=== PATIENT | female | born 1945 | race Caucasian/White ===

== ENCOUNTER 2019-02-07 08:31 | Inpatient (IN) | payer MEDICARE, MEDICAID ==
[~2019-02-07] VITALS: Ht 160 cm; Wt 65.8 kg
--- NOTE | 2019-02-07 09:20 | NUR ---
PATIENT AWAKE ALERT NON DISTRESS DENIES SI NOTED LESION /ABRSSION TO RT BUTTOCK AND COCCYC MD AWARE CLEANSE WITH SALINE AND COVER
[2019-02-07 09:21] LABS: BASOPHILS # (AUTO) 0.1 /CMM (0.0-0.2); BASOPHILS % (AUTO) 1.4 % (0.0-2.0); EOSINOPHILS % (AUTO) 3.4 % (0.0-6.0); HEMATOCRIT 39 % (33-45); HEMOGLOBIN 13.2 g/dL (11.5-14.8); LYMPHOCYTES # (AUTO) 1.7 /CMM (0.8-4.8); MEAN CORPUSCULAR HGB CONC 34 g/dl (31.0-36.0); MEAN CORPUSCULAR VOLUME 93 fL (82-100); MONOCYTES # (AUTO) 0.4 /CMM (0.1-1.30); MONOCYTES % (AUTO) 7.3 % (2.0-12.0); NEUTROPHILS # (AUTO) 3.2 /CMM (1.8-8.9); NEUTROPHILS % (AUTO) 57.9 % (43.0-81.0); PLATELET COUNT (AUTO) 225 /CMM (150-450); RED BLOOD CELL COUNT(AUTO) 4.23 MIL/uL (4.0-5.2); WHITE BLOOD COUNT (AUTO) 5.6 K/uL (4.3-11.0)
[2019-02-07] MEDS ORDERED: MULT1TAB64 PO (09:31)
[2019-02-07] MEDS ORDERED: ATOR10TA PO (09:31)
[2019-02-07] MEDS ORDERED: LORA1TAB PO (09:31)
[2019-02-07] MEDS ORDERED: DIPH25CA46 PO (09:31)
[2019-02-07] MEDS ORDERED: BENA10TA11 PO (09:31)
[2019-02-07] MEDS ORDERED: DOCU-270 PO (09:31)
[2019-02-07] MEDS ORDERED: MAGN400O6 PO (09:31)
[2019-02-07] MEDS ORDERED: ACET-868 PO (09:31)
[2019-02-07] MEDS ORDERED: BISA10SU11 RC (09:31)
[2019-02-07] MEDS ORDERED: CLON0.1T PO (09:31)
[2019-02-07] MEDS ORDERED: NA P133E RC (09:31)
[2019-02-07] MEDS ORDERED: ASCO500T9 PO (09:31)
[2019-02-07 09:44] LABS: CALCIUM, SERUM 9.4 mg/dL (8.5-10.1); CARBON DIOXIDE 26 mmol/L (21-32); CHLORIDE 105 mmol/L (98-107); GLUCOSE 119 mg/dL (74-106); POTASSIUM 4.3 mmol/L (3.5-5.1); SODIUM SERUM 138 mmol/L (136-145); UREA NITROGEN, BLOOD 11 mg/dL (7-18)
[2019-02-07 09:50] LABS: ALANINE AMINOTRANSFERASE 29 U/L (12-78); ALBUMIN 3.7 g/dL (3.4-5.0); ALCOHOL, BLOOD < 3 mg/dL (0-0); ALKALINE PHOSPHATASE 86 U/L (46-116); ASPARTATE AMINOTRANSFERASE 25 U/L (15-37); BILIRUBIN,DIRECT 0.2 mg/dL (0.0-0.2); BILIRUBIN,TOTAL 0.5 mg/dL (0.2-1.0); TOTAL PROTEIN, SERUM 7.6 g/dL (6.4-8.2)
[2019-02-07 09:51] LABS: ACETAMINOPHEN < 10 ug/ml (10-30)
--- NOTE | 2019-02-07 09:57 | NUR ---
REFUSED LAGOS CATH
--- NOTE | 2019-02-07 10:44 | NUR ---
PATIENT ABLE TO AMBULATED TO BATHROOM WITHOUT DIFFICULTIES UNABLE TO PROVIDE URINE AHE FINALLY AGREES FOR IN AND OUT LAGOS CATH ,PREP AND OBSERVED STERILE TECHNIQUE URINE OBTAINED AND SEND TO LAB
[2019-02-07 10:51] LABS: APPEARANCE,URINE Slightly Cloudy (CLEAR); BILIRUBIN,URINE Negative (NEGATIVE); BLOOD, URINE Moderate Ery/uL (NEGATIVE); COLOR,URINE Yellow (YELLOW); KETONES,URINE Negative (NEGATIVE); LEUKOCYTE ESTERASE ,URINE Negative (NEGATIVE); NITRITE, URINE Negative (NEGATIVE); PROTEIN,URINE Negative (NEGATIVE); UGLUCOSE Negative (NEGATIVE); UROBILINOGEN,URINE 0.2 EU/dL (0.2)
[2019-02-07 11:00] LABS: BACTERIA,URINE 2+ /HPF (None Seen); SQUAMOUS EPITHELIAL CELL,UR Rare /HPF (None Seen); WBC,URINE NONE SEEN /HPF (0-3)
--- NOTE | 2019-02-07 11:36 | NUR ---
CALLED ART FLOORMAN.
--- NOTE | 2019-02-07 13:38 | NUR ---
PAIENT AWAKE ALERT DENIES SI STATED ANXIETY NOTED NO AGITAION NO HALLUCINATION ,CONTINUE TO MONITOR
--- NOTE | 2019-02-07 14:00 | NUR ---
NURSING ADMISSION NOTE: PT WAS ADMITTED TODAY AT 1400 TO GPS FROM [facility]. PT WAS BROUGHT TO THE UNIT VIA GURNEY ACCOMPANIED BY ONE STAFF FROM ER. PT WAS ORIGINALLY VOLUNTARY BUT THEN ONCE WAS BROUGHT TO THE UNIT WANTED TO LEAVE. PT WAS THEN RE-EVALUATED AND PLACED ON 5150 DTS. PER HOLD, "PT BIB AMBULANCE FROM [facility] FOR BEING DEPRESSED AND ANXIOUS AND VERY TEARFUL. [facility] MER[facility] STATED PT HAS EPISODES OF SEVERE ANXIETY AND MAY OVER UTILIZE HER LORAZEPAM. PATIENT IN TH ED WAS VERY COOPERATIVE AND ENGAGING AND ADMITTED ON A VOLUNTARY BASIS. ONCE ON THE GPS UNIT SHE BECAME VERY AGITATED STATING SHE WAS SUICIDAL BUT REFUSED TO STATE A PLAN. PT WAS YELLING AND POUNDING ON THE CHAIR THEN VERY TEARFUL. PT IS A&O IN ALL SPHERES NOW YELLING AND POUNDING ON THE CHAIR YELLING SHE IS SUICIDAL AND YELLING FOR MEDICATIONS. PATIENT YELLING SHE IS SUICIDAL BUT REFUSES TO STATE THE PLAN. POOR IMPULSE CONTROL." PT IS A&OX4, ANXIOUS, RESTLESS, CRYING, YELLING, STATING "I WANT TO LEAVE, I DON'T WANT TO STAY HERE, IM VERY DEPRESSED". PT VERBALIZED SI WITHOUT PLAN STATING "IM 73 YEARS OLD WHAT ELSE DO I HAVE TO LIVE FOR". PT DENIES HI/AVH AT THIS TIME. PT C/O PAIN TO LOWER BACK BUT REFUSED TYLENOL FOR THE PAIN. SKIN ASSESSMENT WAS COMPLETED AND PHOTOS HAVE BEEN TAKEN AND PLACED IN THE CHART. PT HAS A WOUND ON HER BUTTOCK, BRUISING TO BILATERAL ACL, REDNESS TO LATERAL BACK, SCABS TO LEFT THIGH, SCABS TO BILATERAL LOWER EXTREMITIES, AND SWELLING TO BILATERAL LATERAL SIDE OF FOOT. VS: 132/79, 97, 18, 97% RA, 97.7, 7/10 PAIN. ADMISSION ORDERS HAVE BEEN GIVEN BY DR. GRECO AND DR. SANDOVAL HAS BEEN NOTIFIED OF PATIENTS ADMISSION AND MED RECON. WILL CONTINUE TO MONITOR Q15 MINS FOR SAFETY AND BEHAVIOR.
--- NOTE | 2019-02-07 14:01 | NUR ---
TRASFEER CARE TO WEI REPORT GIVEN TO RN
--- NOTE | 2019-02-07 14:03 | NUR ---
PATIENT ABLE TO FEED HER SELF AND AMBULATED TO BATHROOM WITH MINIMAL ASSIST
[2019-02-07] MEDS ORDERED: ACETAMINOPHEN 325 MG TABLET PO PRN (15:30)
[2019-02-07] MEDS ORDERED: MAG HYDROX/AL HYDROX/SIMETH 30 ML UDC PO PRN (15:30)
[2019-02-07] MEDS ORDERED: MAGNESIUM HYDROXIDE 30 ML UDC PO PRN (15:30)
[2019-02-07] MEDS ORDERED: BLOOD SUGAR DIAGNOSTIC 1 EACH STRIP IN ONE (15:30)
[2019-02-07 16:00] VITALS: BP 119/70
[2019-02-07 20:15] VITALS: BP 138/90
[2019-02-07] MEDS: TEMAZEPAM 7.5 MG CAPSULE PO PRN (22:26)
[2019-02-07] MEDS ORDERED: BISACODYL SUPP (10 MG) 10 MG/SUPP.RECT SUPP.RECT RC PRN (23:30)
[2019-02-07] MEDS ORDERED: diphenhydrAMINE HCL 25 MG CAPSULE PO PRN (23:30)
[2019-02-07] MEDS ORDERED: CLONIDINE HCL 0.1 MG TABLET PO PRN (23:30)
[2019-02-07] MEDS: LORAZEPAM 0.5 MG TABLET PO PRN (23:59)
[2019-02-08] MEDS: HYDROCODONE/APAP 5/325MG 1 EACH TABLET PO PRN ×4 (02:23→22:02)
[2019-02-08 08:00] VITALS: BP 108/65
[2019-02-08] MEDS: BENAZEPRIL HCL 10 MG TABLET PO SCH (09:00)
[2019-02-08] MEDS: DOCUSATE SODIUM 100 MG CAPSULE PO SCH (09:26)
[2019-02-08] MEDS: ASCORBIC ACID 500 MG TABLET PO SCH (09:27)
[2019-02-08] MEDS: MULTIVITAMINS,THERAGRAN 1 UDTAB TABLET PO SCH (09:27)
--- NOTE | 2019-02-08 10:25 | NUR ---
WOUND CARE CONSULT: PT PRESENTS WITH SOME SCRATCH HOLLINGSWORTH, BRUISES AND RASH WITH SOME OPEN SKIN TO BILATERAL BUTTOCKS, PRESENT ON ADMISSION. PT STATES THAT SHE MAY HAVE SCRATCHED HERSELF AND THAT SHE HAS NOT HAD A SHOWER IN AWHILE. PT IS CONTINENT AND AMBULATORY AT THIS TIME. RECOMMENDATIONS MADE FOR SKIN CARE AND PROTECTION. DISCUSSED WITH NURSING STAFF. WILL SEE PRN. GONZALES IN AGREEMENT WITH PLAN OF CARE. Addendum: 02/08/19 at 1027 by LETI BENOIT WNDNU Amended: Links added.
[2019-02-08] MEDS ORDERED: Z GUARD REMEDY 2 OZ OINT TP PRN (10:30)
[2019-02-08] MEDS: Z GUARD REMEDY 2 OZ OINT TP SCH (11:34)
[2019-02-08 12:55] LABS: CHOLESTEROL 136 mg/dL (<200); HDL CHOLESTEROL 61 mg/dL (40-60); LDL 58 mg/dL (0-99); TRIGLYCERIDES 103 mg/dL (30-150)
[2019-02-08] MEDS: SERTRALINE HCL 25 MG TABLET PO SCH (13:03)
--- NOTE | 2019-02-08 13:29 | NUR ---
given norco for rt. shoulder pain and neck pain a little agitated about food,pt. has no teeth.chg to a [facility].soft diet.
[2019-02-08 13:47] LABS: ALBUMIN 3.9 g/dL (3.4-5.0); BILIRUBIN,TOTAL 0.5 mg/dL (0.2-1.0); CALCIUM, SERUM 9.7 mg/dL (8.5-10.1); TOTAL PROTEIN, SERUM 7.8 g/dL (6.4-8.2)
--- NOTE | 2019-02-08 14:29 | NUR ---
INITIAL DISCHARGE PLANNING:The patient currently resides [facility] [[address] [place] [address]; [phone]]. The patient stated that she would like to return there once ready for discharge. RYAN Her and spoke with admitting: Geneva, to verify if the pt. may return when ready for discharge. Geneva asked that RYAN call back and speak with program administrator: Mamta Camp later today to verify if pt. will be readmitted to [facility]. RYAN to follow up. RYAN will continue to collaborate with interdisciplinary team to ensure safe and proper discharge planning.
--- NOTE | 2019-02-08 14:44 | NUR ---
Communication with Point of Contact: RYAN spoke with pt.s sister Anila Alston [phone] to discuss discharge planning and gather additional information. Per Anila, she has been alerted by Kianna Christinason [phone] that the pt.s assisted Living waiver had and a new application must be completed. Per Anila she is uncertain if the pt. will be accepted back to [facility] [[address] [place] [address]; [phone]] where the pt. was last residing. Per Anila, she was told by Kianna that the pt. might be able to be discharge to [facility] [[address], [facility] [address]; [phone]] where she was residing before going to [facility]. Per Anila, being D/C to [facility] will speed up the application process for assisted living waiver program. RYAN called Roberto the RYAN at [facility] [phone] to verify if pt. can be admitted. Per Roberto, he got approval for pt. to be admitted to [facility]. RYAN provided Roberto with the number for [facility] Sarai DAVIS who will be assisting the pt. with discharge planning. Sarai is informed.
[2019-02-08 16:00] VITALS: BP 125/70
--- NOTE | 2019-02-08 17:39 | NUR ---
given norco for back pain.
[2019-02-08] MEDS: CLOTRIMAZOLE 1% 15 GM TUBE TP SCH (17:40)
[2019-02-08] MEDS: LORAZEPAM 0.5 MG TABLET PO PRN (18:51)
--- NOTE | 2019-02-08 18:51 | NUR ---
given ativan 0.5 mg po for nerves.
[2019-02-08 20:20] VITALS: BP 134/88
[2019-02-08] MEDS: ATORVASTATIN 10 MG TABLET PO SCH ×2 (21:22)
[2019-02-08] MEDS: TEMAZEPAM 7.5 MG CAPSULE PO PRN (21:23)
[2019-02-09] MEDS: LORAZEPAM 0.5 MG TABLET PO PRN ×3 (02:41→18:44)
[2019-02-09] MEDS: HYDROCODONE/APAP 5/325MG 1 EACH TABLET PO PRN ×3 (04:41→23:18)
[2019-02-09 08:00] VITALS: BP 120/64
[2019-02-09] MEDS: ASCORBIC ACID 500 MG TABLET PO SCH (09:30)
[2019-02-09] MEDS: MULTIVITAMINS,THERAGRAN 1 UDTAB TABLET PO SCH (09:30)
[2019-02-09] MEDS: BENAZEPRIL HCL 10 MG TABLET PO SCH (09:31)
[2019-02-09] MEDS: Z GUARD REMEDY 2 OZ OINT TP SCH (09:54)
[2019-02-09] MEDS: CLOTRIMAZOLE 1% 15 GM TUBE TP SCH ×2 (09:55→16:19)
[2019-02-09] MEDS: DOCUSATE SODIUM 100 MG CAPSULE PO SCH (09:57)
[2019-02-09] MEDS: SERTRALINE HCL 25 MG TABLET PO SCH ×2 (13:01→17:09)
[2019-02-09 16:00] VITALS: BP 109/59
[2019-02-09 20:49] VITALS: BP 137/68
[2019-02-09] MEDS: TEMAZEPAM 7.5 MG CAPSULE PO PRN (21:16)
[2019-02-09] MEDS: ATORVASTATIN 10 MG TABLET PO SCH (21:17)
[2019-02-10] MEDS: LORAZEPAM 0.5 MG TABLET PO PRN ×2 (05:15→13:40)
--- NOTE | 2019-02-10 07:30 | NUR ---
INITIAL PAIENT AWAKE ALERT DENIES SI STATED ANXIETY NOTED NO AGITAION NO HALLUCINATION ,CONTINUE TO MONITOR
[2019-02-10 08:00] VITALS: BP 142/81
[2019-02-10] MEDS: BENAZEPRIL HCL 10 MG TABLET PO SCH (08:41)
[2019-02-10] MEDS: MULTIVITAMINS,THERAGRAN 1 UDTAB TABLET PO SCH (08:41)
[2019-02-10] MEDS: DOCUSATE SODIUM 100 MG CAPSULE PO SCH (08:41)
[2019-02-10] MEDS: ASCORBIC ACID 500 MG TABLET PO SCH (08:41)
[2019-02-10] MEDS: HYDROCODONE/APAP 5/325MG 1 EACH TABLET PO PRN ×3 (08:41→21:10)
[2019-02-10] MEDS: Z GUARD REMEDY 2 OZ OINT TP SCH (08:42)
[2019-02-10] MEDS: CLOTRIMAZOLE 1% 15 GM TUBE TP SCH ×2 (08:42→16:57)
--- NOTE | 2019-02-10 10:06 | NUR ---
SW faxed referral to [facility] facility correspondence coordinator [[id number] [place] [address]; fax number ] for review.
--- NOTE | 2019-02-10 11:30 | NUR ---
SW received a call from adan Calle at [facility] [[address] , [facility] [address]; [phone]] who stated the facility will accept pt back.
[2019-02-10] MEDS: SERTRALINE HCL 25 MG TABLET PO SCH ×2 (12:36→16:56)
--- NOTE | 2019-02-10 15:08 | NUR ---
Group note: Pt attended a group session on 02/10/19 at 2:30PM discussing goal setting for while they are in the hospital and for after being discharged. S: Pt stated, My goal is to get out of here. I just know I cant tell people how I really feel because then I end up at a place like this. O: Pt was present during the group session and was engaged. Pt appeared to be in a eurythmic mood and congruent affect. Pt maintained appropriate eye contact and had an appropriate tone of voice. A: Pt presented with some insight on her admission. Pt also gained awareness of her situation and capacity to set realistic goals to utilize for to remain compliant with her medication. P: Pt will continue milieu treatment and medication stabilization.
--- NOTE | 2019-02-10 15:59 | NUR ---
RT/RADIOLOGY CALLED RT TO DO EKG AND PT WAS TAKEN BACK AND FORTH FOR CT SCAN
[2019-02-10 16:00] VITALS: BP 103/59
[2019-02-10] MEDS: ATORVASTATIN 10 MG TABLET PO SCH (20:50)
[2019-02-10] MEDS: TEMAZEPAM 7.5 MG CAPSULE PO PRN (20:50)
[2019-02-10 20:52] VITALS: BP 120/57
--- NOTE | 2019-02-10 20:52 | NUR ---
ms/rn notes Patient complained of insomnia. medicated with Restoril 1 tab. will continue to monitor
--- NOTE | 2019-02-10 21:11 | NUR ---
ms/rn notes patient complained of upper back pain, 7/10 level of pain. Medicated with [place] 1 tab as ordered. will continue to monitor.
[2019-02-11] MEDS: LORAZEPAM 0.5 MG TABLET PO PRN ×2 (04:59→13:33)
--- NOTE | 2019-02-11 05:00 | NUR ---
ms/rn notes Patient awake, went to the nurses station. complained of anxiety. Medicated with ativan 1 tab as ordered
[2019-02-11] MEDS: HYDROCODONE/APAP 5/325MG 1 EACH TABLET PO PRN ×5 (05:50→20:44)
--- NOTE | 2019-02-11 05:50 | NUR ---
ms/rn notes patient complained of upper back pain, 6/10 level of pain. Medicated with [place] 1 tab as ordered. will continue to monitor.
[2019-02-11 08:00] VITALS: BP 108/67
[2019-02-11] MEDS: ASCORBIC ACID 500 MG TABLET PO SCH (08:41)
[2019-02-11] MEDS: MULTIVITAMINS,THERAGRAN 1 UDTAB TABLET PO SCH (08:41)
[2019-02-11] MEDS: Z GUARD REMEDY 2 OZ OINT TP SCH (08:43)
[2019-02-11] MEDS: DOCUSATE SODIUM 100 MG CAPSULE PO SCH (08:45)
[2019-02-11] MEDS: BENAZEPRIL HCL 10 MG TABLET PO SCH (08:48)
[2019-02-11] MEDS: CLOTRIMAZOLE 1% 15 GM TUBE TP SCH ×2 (09:38→17:02)
--- NOTE | 2019-02-11 09:42 | NUR ---
RN NOTE: PT C/O 12/03 NECK PAIN. MEDICATED WITH NORCO ORDERED PRN. WILL CONT TO MONITOR.
[2019-02-11] MEDS: SERTRALINE HCL 25 MG TABLET PO SCH ×2 (12:25→17:10)
--- NOTE | 2019-02-11 13:33 | NUR ---
RN NOTE: PT AT NURSES STATION C/O ANXIETY. MED WITH ATIVAN PRN. WILL CONT TO MONITOR.
--- NOTE | 2019-02-11 14:31 | NUR ---
RN NOTE: PT C/O 12/03 NECK PAIN. MED WITH NORCO ORDERED PRN. WILL CONT TO MONITOR.
[2019-02-11 16:00] VITALS: BP 123/66
--- NOTE | 2019-02-11 16:44 | NUR ---
RN NOTE: AT 16:36 - NORCO DOCUMENTED GIVEN BUT NOT ADMINISTERED. UNDONE IN SYSTEM.
[2019-02-11 21:02] VITALS: BP 120/66
[2019-02-11] MEDS: ATORVASTATIN 10 MG TABLET PO SCH (21:15)
[2019-02-11] MEDS: TEMAZEPAM 7.5 MG CAPSULE PO PRN (22:38)
[2019-02-12] MEDS: LORAZEPAM 0.5 MG TABLET PO PRN ×2 (05:58→20:30)
[2019-02-12 08:00] VITALS: BP 139/77
[2019-02-12] MEDS: DOCUSATE SODIUM 100 MG CAPSULE PO SCH (08:30)
[2019-02-12] MEDS: ASCORBIC ACID 500 MG TABLET PO SCH (08:30)
[2019-02-12] MEDS: MULTIVITAMINS,THERAGRAN 1 UDTAB TABLET PO SCH (08:30)
[2019-02-12] MEDS: BENAZEPRIL HCL 10 MG TABLET PO SCH (08:31)
[2019-02-12] MEDS: Z GUARD REMEDY 2 OZ OINT TP SCH (08:32)
[2019-02-12] MEDS: CLOTRIMAZOLE 1% 15 GM TUBE TP SCH ×2 (08:32→17:11)
[2019-02-12] MEDS: SERTRALINE HCL 25 MG TABLET PO SCH ×2 (12:29→17:11)
[2019-02-12 16:03] VITALS: BP 117/63
[2019-02-12] MEDS: HYDROCODONE/APAP 5/325MG 1 EACH TABLET PO PRN (17:39)
[2019-02-12 19:53] VITALS: BP 116/60
--- NOTE | 2019-02-12 20:32 | NUR ---
GPS RN NOTES: PT COMPLAIN OF FEELING ANXIOUS. REQUESTING FOR ATIVAN 0.5MG PO PRN. ATIVAN GIVEN PER PTS REQUEST. CONTINUE TO MONITOR.
[2019-02-12] MEDS: ATORVASTATIN 10 MG TABLET PO SCH (21:02)
[2019-02-12] MEDS: TEMAZEPAM 7.5 MG CAPSULE PO PRN (22:32)
--- NOTE | 2019-02-12 22:34 | NUR ---
GPS RN NOTES: PATIENT REQUESTED FOR RESTORIL 7.5 MG PO PRN. PER PT STATED, I AM UNABLE TO GO TO SLEEP. PER PT REQUEST, RESTORIL GIVEN. CONTINUE TO MONITOR PT.
[2019-02-13] MEDS: LORAZEPAM 0.5 MG TABLET PO PRN ×2 (07:09→16:28)
--- NOTE | 2019-02-13 07:12 | NUR ---
GPS RN NOTES: PT COMPLAIN OF FEELING ANXIOUS. REQUESTING FOR ATIVAN 0.5MG PO PRN. ATIVAN GIVEN PER PTS REQUEST. CONTINUE TO MONITOR
[2019-02-13 08:00] VITALS: BP 111/53
[2019-02-13] MEDS: MULTIVITAMINS,THERAGRAN 1 UDTAB TABLET PO SCH (09:00)
[2019-02-13] MEDS: BENAZEPRIL HCL 10 MG TABLET PO SCH (09:00)
[2019-02-13] MEDS: DOCUSATE SODIUM 100 MG CAPSULE PO SCH (09:00)
[2019-02-13] MEDS: ASCORBIC ACID 500 MG TABLET PO SCH (09:00)
[2019-02-13] MEDS: HYDROCODONE/APAP 5/325MG 1 EACH TABLET PO PRN (09:42)
[2019-02-13] MEDS: Z GUARD REMEDY 2 OZ OINT TP SCH (09:53)
[2019-02-13] MEDS: CLOTRIMAZOLE 1% 15 GM TUBE TP SCH ×2 (09:53→16:11)
[2019-02-13] MEDS: SERTRALINE HCL 25 MG TABLET PO SCH ×2 (12:12→16:11)
--- NOTE | 2019-02-13 15:40 | NUR ---
GROUP NOTE: SW encouraged pt to participate in group on this present day discussing "discharge planning." Pt refused to attend stating that she didn't want to say how she really felt because she knew she would stay here longer and just wanted to go home. SW validated pts experience of distress as understandable given her situation. SW demonstrated acceptance through listening in a calm and nurturing manner.
[2019-02-13 16:00] VITALS: BP 121/80
[2019-02-13 20:32] VITALS: BP 116/58
[2019-02-13] MEDS: TEMAZEPAM 7.5 MG CAPSULE PO PRN (21:16)
[2019-02-13] MEDS: ATORVASTATIN 10 MG TABLET PO SCH (22:35)
[2019-02-14] MEDS: HYDROCODONE/APAP 5/325MG 1 EACH TABLET PO PRN ×2 (04:54→16:45)
[2019-02-14 08:00] VITALS: BP 123/77
[2019-02-14] MEDS: MULTIVITAMINS,THERAGRAN 1 UDTAB TABLET PO SCH (08:23)
[2019-02-14] MEDS: DOCUSATE SODIUM 100 MG CAPSULE PO SCH (08:23)
[2019-02-14] MEDS: ASCORBIC ACID 500 MG TABLET PO SCH (08:23)
[2019-02-14] MEDS: LORAZEPAM 0.5 MG TABLET PO PRN ×2 (08:24→16:45)
[2019-02-14] MEDS: BENAZEPRIL HCL 10 MG TABLET PO SCH (08:24)
--- NOTE | 2019-02-14 08:26 | NUR ---
GPS RN NOTE ANTI ANXIETY MEDICATION REQUESTED. PRN ATIVAN 0.5MG PO ADMINISTERED ORDERED.
[2019-02-14] MEDS: Z GUARD REMEDY 2 OZ OINT TP SCH (09:44)
[2019-02-14] MEDS: CLOTRIMAZOLE 1% 15 GM TUBE TP SCH ×2 (09:45→16:46)
[2019-02-14] MEDS: SERTRALINE HCL 25 MG TABLET PO SCH ×2 (12:15→16:44)
[2019-02-14 16:00] VITALS: BP 100/56
--- NOTE | 2019-02-14 16:00 | NUR ---
GROUP NOTE: SW encouraged pt to participate in group on this present day discussing "positive coping skills." Pt was asleep and not easily aroused.
--- NOTE | 2019-02-14 16:03 | NUR ---
Family Contact: RYAN spoke with pt.s sister Anila Alston [phone] and informed her that the pts discharge date is set for . She stated that the pt is very unhappy with the facility and would like to be discharged sooner. RYAN stated that she will speak to the MD.
--- NOTE | 2019-02-14 16:45 | NUR ---
gps regrinder operator: neuro f/u seen by vu (surg physician asst) at this time. pt c/o 11/02 right arm pain. arom to right upper ext's wnl. will continue to monitor.
--- NOTE | 2019-02-14 17:45 | NUR ---
gps winding machine operator: notes pt sounds asleep. resp. even and unlabored. no distress noted.
[2019-02-14 20:28] VITALS: BP 112/62
[2019-02-14] MEDS: ATORVASTATIN 10 MG TABLET PO SCH (21:15)
[2019-02-14] MEDS: TEMAZEPAM 7.5 MG CAPSULE PO PRN (21:57)
[2019-02-15 08:00] VITALS: BP 109/68
[2019-02-15] MEDS: ASCORBIC ACID 500 MG TABLET PO SCH (08:31)
[2019-02-15] MEDS: MULTIVITAMINS,THERAGRAN 1 UDTAB TABLET PO SCH (08:31)
[2019-02-15] MEDS: LORAZEPAM 0.5 MG TABLET PO PRN (08:31)
[2019-02-15] MEDS: DOCUSATE SODIUM 100 MG CAPSULE PO SCH (08:32)
[2019-02-15 09:00] VITALS: BP 109/68
[2019-02-15] MEDS: BENAZEPRIL HCL 10 MG TABLET PO SCH (09:00)
[2019-02-15] MEDS: CLOTRIMAZOLE 1% 15 GM TUBE TP SCH (09:02)
[2019-02-15] MEDS: Z GUARD REMEDY 2 OZ OINT TP SCH (09:02)
--- NOTE | 2019-02-15 09:30 | NUR ---
SNF Contact: SW contacted Alva ([phone]), dba for [facility], stated that the pt can be admitted but would like a referral packet to be faxed over.
--- NOTE | 2019-02-15 09:58 | NUR ---
SNF Referral: RYAN faxed a referral to [facility] with attention to Alva to the fax number: [phone].
--- NOTE | 2019-02-15 12:07 | NUR ---
Family Contact: RYAN spoke with pts sister Anila Alston [phone] and informed her that the pt will be discharged to [facility] today.
[2019-02-15] MEDS: HYDROCODONE/APAP 5/325MG 1 EACH TABLET PO PRN (12:40)
--- NOTE | 2019-02-15 12:42 | NUR ---
RN NOTE: PATIENT C/O 7/10 PAIN TO RIGHT ARM. ADMINISTERED PRN NORCO.
[2019-02-15] MEDS: SERTRALINE HCL 25 MG TABLET PO SCH (12:44)
--- NOTE | 2019-02-15 15:17 | NUR ---
Discharge Note: Pt was discharged to [facility] ([facility]) located at [id number] [place] [address]; . Pt was transported via [facility] (Trip #[id number]) at 3PM. Pts sister, Anila Alston ([phone]), was informed of the discharge. Upon discharge, the pt appeared to be in a euthymic mood and presented with a distressed affect. Pt denied both suicidal and homicidal ideation as well as auditory and visual hallucinations. Pt will be under the care of her psychiatrist, Dr. Condon, located at [address] [address], [place] [address], [place] [address]; and her corrugator operator, Dr. Watkins, located at [address], [place] [address]; .
--- NOTE | 2019-02-15 15:50 | NUR ---
RN NOTE: PATIENT IS A 73 Y/O FEMALE DISCHARGED TO [address] [facility] [place] [address] . PATIENT IS IN STABLE CONDITION. VSS. NO ACUTE DISTRESS NOTED. NO COMPLAINTS. COMPLIANT WITH MEDICATION MANAGEMENT. COOPERATIVE WITH PLAN OF CARE. PSYCHIATRIC TREATMENT PLANS MET. MEDICAL TREATMENT PLANS DEFERRED FOR CONTINUAL MONITORING. DENIES SI/HI VAH AT THE TIME OF DISCHARGE. PATIENT REFUSED BODY ASSESSMENT AND PICTURES. EDUCATED PATIENT ABOUT AFTERCARE WITH COPY PROVIDED. RETURNED PERSONAL BELONGINGS TO PATIENT. MEDICATIONS RECONCILED WITH DR. ARORA (PSYCHIATRIST) AND TYLER ORTIZ DNP ALONG WITH PSYCHIATRIC DISCHARGE ORDERS. DISCHARGE PAPERWORK SIGNED. FOR FOLLOW UP WITH PSYCHIATRIST AND CHARGE MASTER COORDINATOR WITHIN 1 WEEK. PATIENT LEFT THE [facility] GPS VIA [facility] TRANSPORTATION.
== END 2019-02-15 15:50 | DRG 885 ==
LOC: ER 08:33 → GPS 13:07
PROVIDERS: ADMIT Psychiatry & Neurology Psychosomatic Medicine; ATTEND Nurse Practitioner Acute Care
DX: F33.2 Major depressive disorder, recurrent severe without psychotic features (principal); R45.851 Suicidal ideations; G89.29 Other chronic pain; I10 Essential (primary) hypertension; Z87.891 Personal history of nicotine dependence; F29 Unspecified psychosis not due to a substance or known physiological condition; F41.9 Anxiety disorder, unspecified; E78.5 Hyperlipidemia, unspecified; M54.5 Low back pain; F03.90 Unspecified dementia, unspecified severity, without behavioral disturbance, psychotic disturbance, mood disturbance, and anxiety; R42 Dizziness and giddiness; F60.3 Borderline personality disorder; I67.2 Cerebral atherosclerosis; G93.89 Other specified disorders of brain; K59.00 Constipation, unspecified; Z88.2 Allergy status to sulfonamides
CPT/HCPCS: 36415; 70450-TC; 80048-TC; 80053-TC; 80061-TC; 80076-TC; 80305; 81000-TC; 82962-TC; 84443-TC; 85025-TC; 87081-TC; 87086-TC; 97116-TC; 97530-TC; G0480; Q0163

== ENCOUNTER 2022-07-28 20:56 | Inpatient (IN) | payer MEDICARE, OTHER ==
[~2022-07-28] VITALS: Ht 160 cm; Wt 60.8 kg
[~2022-07-28 20:56] MED LIST: ACET-868 PO; ASCO500T20 PO; ATOR10TA PO; BENA10TA74 PO; BISA10SU11 RC; CLON0.1T PO; DIPH-1062 PO; DOCU-270 PO; LORA1TAB PO; MAGN400O6 PO; MULT1TAB64 PO; NA P133E RC
--- NOTE | 2022-07-28 22:25 | NUR ---
[address] [facility] FOR [facility] AND PHYSICAL AGRESSIVE TOWARDS STAFF, NEEDS PSYCH EVAL
--- NOTE | 2022-07-28 22:47 | NUR ---
CATERING SERVER AT PT'S BEDSIDE
[2022-07-28 22:56] LABS: BASOPHILS # (AUTO) 0.1 K/uL (0.0-0.2); BASOPHILS % (AUTO) 1.2 % (0.0-2.0); EOSINOPHILS % (AUTO) 4.3 % (0.0-6.0); HEMATOCRIT 33 % (33-45); HEMOGLOBIN 10.5 g/dL (11.5-14.8); LYMPHOCYTES # (AUTO) 2.2 K/uL (0.8-4.8); MEAN CORPUSCULAR HGB CONC 32 g/dl (31.0-36.0); MEAN CORPUSCULAR VOLUME 79 fL (82-100); MONOCYTES # (AUTO) 0.4 K/uL (0.1-1.30); MONOCYTES % (AUTO) 6.5 % (2.0-12.0); PLATELET COUNT (AUTO) 318 K/uL (150-450); RED BLOOD CELL COUNT(AUTO) 4.19 MIL/uL (4.0-5.2); WHITE BLOOD COUNT (AUTO) 5.9 K/uL (4.3-11.0)
--- NOTE | 2022-07-28 22:58 | NUR ---
URINE COLLECTED AND SENT TO LAB
--- NOTE | 2022-07-28 22:58 | NUR ---
COVID ANTIGEN SWAB COLLECTED AND SENT TO LAB
[2022-07-28 23:03] LABS: CALCIUM, SERUM 9.2 mg/dL (8.5-10.1); CARBON DIOXIDE 29 mmol/L (21-32); CHLORIDE 107 mmol/L (98-107); CREATININE 0.9 mg/dL (0.6-1.3); GLUCOSE 98 mg/dL (74-106); SODIUM SERUM 140 mmol/L (136-145); UREA NITROGEN, BLOOD 12 mg/dL (7-18)
[2022-07-28 23:09] LABS: ALANINE AMINOTRANSFERASE 11 U/L (12-78); ALBUMIN 2.9 g/dL (3.4-5.0); ALCOHOL, BLOOD < 3 mg/dL (0-0); ALKALINE PHOSPHATASE 134 U/L (46-116); ASPARTATE AMINOTRANSFERASE 13 U/L (15-37); BILIRUBIN,DIRECT 0.1 mg/dL (0.0-0.2); BILIRUBIN,TOTAL 0.2 mg/dL (0.2-1.0); TOTAL PROTEIN, SERUM 7.2 g/dL (6.4-8.2)
[2022-07-28 23:13] LABS: ACETAMINOPHEN 0 ug/ml (10-30)
[2022-07-28 23:26] LABS: BILIRUBIN,URINE NEGATIVE (NEGATIVE); COLOR,URINE DARK YELLOW (YELLOW); LEUKOCYTE ESTERASE ,URINE NEGATIVE (NEGATIVE); NITRITE, URINE NEGATIVE (NEGATIVE); PROTEIN,URINE NEGATIVE (NEGATIVE); UGLUCOSE NEGATIVE (NEGATIVE); UROBILINOGEN,URINE 0.2 EU/dL (0.2)
[2022-07-28 23:33] LABS: BACTERIA,URINE Rare /HPF (None Seen); RBC,URINE 0-2 /HPF (0-2); SQUAMOUS EPITHELIAL CELL,UR Few /HPF (None Seen); WBC,URINE 0-2 /HPF (0-3)
--- NOTE | 2022-07-29 00:54 | NUR ---
SONDRAY CRISIS TEAM AT PT'S BEDSIDE
--- NOTE | 2022-07-29 01:35 | NUR ---
REPORT GIVEN TO BONY HORNER [facility]
--- NOTE | 2022-07-29 01:45 | NUR ---
GPS CHORUS DANCER NOTES ADMITTED A 77 Y/O FEMALE FROM [facility] AND EVALUATED FROM [facility]. PATIENT ADMITTING DX IS PSYCHOSIS NOS AND MEDICAL DIAGNOSIS OF HYPERLIPIDEMIA, CHF, ANEMIA, AND HYPERTENSION. UPON FACE TO FACE EVALUATION, PATIENT APPEARED TO BE ALERT AND ORIENTED X 2. NO AGITATION AT THIS TIME. HEAD TO TOE ASSESSMENT DONE. PATIENT UNABLE TO SIGN PAPERS WORKS. NO SOB, NO ACUTE DISTRESS NOTED, BREATHING EVEN AND UNLABORED, NO S/S OF PAIN AND DISCOMFORT. PATIENT IS UNDER THE CARE OF DR. GRECO. BELONGINGS COLLECTED FOR CONTRABAND CHECK. NOTIFIED EDER DE TO RECONCILE MEDICATION. NOTIFIED RESPONSIBLE CONSTITUTION PARTY OF THE ADMISSION. KEPT CLEAN, DRY AND COMFORTABLE. WILL CONTINUE TO MONITOR Q15 MINS FOR SAFETY.
[2022-07-29] MEDS ORDERED: MAGNESIUM HYDROXIDE 30 ML UDC PO PRN ×2 (02:00→02:30)
[2022-07-29] MEDS ORDERED: CLONIDINE HCL 0.1 MG TABLET PO PRN (02:00)
[2022-07-29] MEDS ORDERED: BISACODYL SUPP (10 MG) 10 MG/SUPP.RECT SUPP.RECT RC PRN (02:00)
[2022-07-29] MEDS ORDERED: ACETAMINOPHEN 325 MG TABLET PO PRN ×2 (02:00→02:30)
[2022-07-29] MEDS ORDERED: NA PHOS,M-B/NA PHOS,DI-BA 1 EA ENEMA RC PRN (02:00)
--- NOTE | 2022-07-29 02:02 | NUR ---
PT TRANSFERED TO GPS
[2022-07-29] MEDS ORDERED: MAG HYDROX/AL HYDROX/SIMETH 30 ML UDC PO PRN (02:30)
[2022-07-29] MEDS ORDERED: BLOOD SUGAR DIAGNOSTIC 1 EACH STRIP IN ONE (02:30)
[2022-07-29] MEDS ORDERED: LORAZEPAM 0.5 MG TABLET PO PRN (02:30)
[2022-07-29 04:18] VITALS: BP 132/66
[2022-07-29 08:00] VITALS: BP 145/76
[2022-07-29] MEDS: ASCORBIC ACID 500 MG TABLET PO SCH (08:28)
[2022-07-29] MEDS: BENAZEPRIL HCL 10 MG TABLET PO SCH (08:28)
[2022-07-29] MEDS: DOCUSATE SODIUM 100 MG CAPSULE PO SCH (08:28)
[2022-07-29] MEDS: MULTIVIT W/MINERALS 1 TAB TABLET PO SCH (08:29)
[2022-07-29] MEDS ORDERED: ACET-2605 PO (10:23)
[2022-07-29] MEDS ORDERED: APIX5TAB PO (10:23)
[2022-07-29] MEDS ORDERED: LACT1CAP59 PO (10:23)
[2022-07-29] MEDS ORDERED: SENN-18 PO (10:23)
[2022-07-29] MEDS ORDERED: CHOL4PAC9 PO (10:23)
[2022-07-29] MEDS ORDERED: HYDR-4303 PO (10:23)
[2022-07-29] MEDS ORDERED: ALEN70TA80 PO (10:23)
[2022-07-29] MEDS ORDERED: ESTR0.623 PO (10:23)
[2022-07-29] MEDS ORDERED: METO25TA20 PO (10:23)
[2022-07-29] MEDS ORDERED: MULT-447 PO (10:23)
[2022-07-29] MEDS ORDERED: FLUT16SP16 (10:23)
[2022-07-29] MEDS ORDERED: MIRT-90 PO (10:23)
[2022-07-29] MEDS ORDERED: QUET25TA PO (10:23)
[2022-07-29] MEDS ORDERED: CRAN425C6 PO (10:23)
[2022-07-29] MEDS ORDERED: TEMA15CA5 PO (10:23)
[2022-07-29] MEDS ORDERED: HYDR-3642 PO (10:23)
[2022-07-29] MEDS ORDERED: DIGO125T PO (10:23)
[2022-07-29] MEDS ORDERED: PANT20TA2 PO (10:23)
[2022-07-29] MEDS ORDERED: CALC1TAB30 PO (10:23)
[2022-07-29] MEDS ORDERED: CYCL30DR EACHEYE (10:23)
[2022-07-29] MEDS ORDERED: ONDA4TAB11 PO (10:23)
[2022-07-29] MEDS ORDERED: CARI350T PO (10:23)
[2022-07-29 11:53] LABS: CREATININE 0.8 mg/dL (0.6-1.3)
[2022-07-29] MEDS ORDERED: CARISOPRODOL 350 MG TABLET PO PRN (12:00)
[2022-07-29] MEDS ORDERED: ONDANSETRON 4 MG TAB.RAPDIS PO PRN (12:00)
[2022-07-29 12:14] LABS: CHOLESTEROL 101 mg/dL (<200); HDL CHOLESTEROL 54 mg/dL (40-60); LDL 32 mg/dL (0-99); TRIGLYCERIDES 194 mg/dL (30-150)
[2022-07-29] MEDS: DULOXETINE HCL 30 MG CAPSULE.DR PO SCH (12:49)
[2022-07-29] MEDS ORDERED: QUETIAPINE FUMARATE 25 MG TABLET PO SCH (13:00)
--- NOTE | 2022-07-29 13:24 | NUR ---
RYAN Initial Discharge Note: Patient resides at [facility] located at [address] [place] [address]; ([phone]). RYAN spoke with donald Vázquez ([phone]) who stated pt is welcomed back. RYAN will work with the MD, treatment team, and family to help coordinate appropriate discharge.
--- NOTE | 2022-07-29 13:24 | NUR ---
Treatment Plan: Pt suspicious and refused to sign the treatment plan.
--- NOTE | 2022-07-29 13:24 | NUR ---
RYAN Clinical Note: Pt placed on a 5150 hold for GD and danger to others. Pt was aggressive at her facility.Patient resides at [facility] located at [address] [place] [address]; ([phone]). RYAN spoke with donald Vázquez ([phone]) who stated pt is welcomed back.
--- NOTE | 2022-07-29 15:10 | NUR ---
Family Contact: SW attempted to contact pt's sister Anila ([phone]) and left a detailed voicemail.
[2022-07-29 16:00] VITALS: BP 126/65
[2022-07-29] MEDS: ACETAMINOPHEN ES 500 MG TABLET PO PRN (16:28)
[2022-07-29] MEDS: APIXABAN 5 MG TABLET PO SCH (16:47)
[2022-07-29 20:53] VITALS: BP 138/66
[2022-07-29] MEDS: METOPROLOL TARTRATE 25 MG TABLET PO SCH (21:15)
[2022-07-29] MEDS ORDERED: MIRTAZAPINE 15 MG TABLET PO SCH (22:00)
[2022-07-29] MEDS: SENNOSIDES 8.6 MG TABLET PO SCH (22:19)
[2022-07-29] MEDS: ATORVASTATIN 10 MG TABLET PO SCH (22:19)
--- NOTE | 2022-07-29 22:30 | NUR ---
RN NOTE RECEIVED AN ORDER FROM BATSHEVA DE TO USE STRAIGHT CATHETER TO OBTAIN URINE SAMPLE SINCE PATIENT IS INCONTINENT AND USING A DIAPER.
[2022-07-30 05:33] LABS: BILIRUBIN,URINE NEGATIVE (NEGATIVE); COLOR,URINE DARK YELLOW (YELLOW); LEUKOCYTE ESTERASE ,URINE NEGATIVE (NEGATIVE); NITRITE, URINE NEGATIVE (NEGATIVE); PH,URINE 6.5 (5.0-8.0); PROTEIN,URINE TRACE mg/dl (NEGATIVE); UGLUCOSE NEGATIVE (NEGATIVE); UROBILINOGEN,URINE 0.2 EU/dL (0.2)
[2022-07-30 05:34] LABS: BACTERIA,URINE Few /HPF (None Seen); RBC,URINE 0-2 /HPF (0-2); SQUAMOUS EPITHELIAL CELL,UR Moderate /HPF (None Seen); WBC,URINE 0-2 /HPF (0-3)
--- NOTE | 2022-07-30 07:50 | NUR ---
RN NOTES RECEIVED PATIENT AWAKE IN BED A/OX3, ABLE TO MAKE NEEDS KNOWN, NO SOB/DISTRESS NOTED. RESPONSIVE AND COOPERATIVE WHEN ASK. ENCOURAGED PATIENT TO VERBALIZED ANY FEELING OR CONCERN. DENIES ANY DISCOMFORT AT THIS TIME. WILL CONTINUE TO MONITOR.
[2022-07-30 08:00] VITALS: BP 114/62
[2022-07-30] MEDS: PANTOPRAZOLE 40 MG/PACK PACK PO SCH (08:25)
[2022-07-30] MEDS ORDERED: ESTROGENS,CONJUGATED 0.625 MG TABLET PO SCH (09:00)
[2022-07-30] MEDS: FLUTICASONE PROPIONATE 16 GM BOTTLE NS SCH (09:10)
[2022-07-30] MEDS: ASCORBIC ACID 500 MG TABLET PO SCH (09:11)
[2022-07-30] MEDS: ESTROGENS,CONJUGATED (0.3 mg) 0.3 MG TABLET PO SCH (09:11)
[2022-07-30] MEDS: MULTIVIT W/MINERALS 1 TAB TABLET PO SCH (09:11)
[2022-07-30] MEDS: CALCIUM CARB 600MG /VIT D 1 EACH TABLET PO SCH (09:11)
[2022-07-30] MEDS: DOCUSATE SODIUM 100 MG CAPSULE PO SCH (09:12)
[2022-07-30] MEDS: BENAZEPRIL HCL 10 MG TABLET PO SCH (09:12)
[2022-07-30] MEDS: METOPROLOL TARTRATE 25 MG TABLET PO SCH ×2 (09:29→21:25)
[2022-07-30] MEDS: DIGOXIN 0.125 MG TABLET PO SCH (09:29)
[2022-07-30] MEDS: ENSURE ENLIVE 237 ML LIQUID (VANILLA) PO SCH ×2 (09:30→17:06)
[2022-07-30] MEDS: APIXABAN 5 MG TABLET PO SCH ×2 (09:33→17:05)
[2022-07-30] MEDS: DULOXETINE HCL 30 MG CAPSULE.DR PO SCH (13:06)
[2022-07-30 16:00] VITALS: BP 115/79
--- NOTE | 2022-07-30 18:25 | NUR ---
RN NOTES PATIENT AWAKE IN BED A/OX3, ABLE TO MAKE NEEDS KNOWN, NO SOB/DISTRESS NOTED. PATIENT IS EASILY GETS AGITATED,ISOLATIVE. NO SIGNIFICANT CHANGES IN BAHAVIOR ALL THROUGHOUT THE SHIFT. PATIENT IS COMPLIANT WITH MEDICATIONS, ALL DUE MEDS GIVEN. KEPT PATIENT CLEAN AND COMFORTABLE. ENCOURAGED PATIENT TO VERBALIZED ANY FEELING OR CONCERN . DENIES SI/HI AND AUDITORY/VISUAL HALLUCINATIONS AT THIS TIME. WILL ENDORSED TO NIGHT NURSE FOR CONTINUITY OF CARE.
--- NOTE | 2022-07-30 19:30 | NUR ---
GPS RN OPENING NOTE RECEIVED PT RESTING IN BED, VERBALLY RESPONSIVE. A/O X3 AND ABLE TO MAKE NEEDS KNOWN. SUSPICIOUS AT FIRST BUT AGREEABLE WITH CARE. NO ACUTE DISTRESS NOTED AT THIS TIME. ALL NEEDS ATTENDED ANTICIPATED AT THIS TIME. WILL CONTINUE TO MONITOR FOR SAFETY AND BEHAVIOR.
[2022-07-30 20:00] VITALS: BP 123/75
[2022-07-30] MEDS: SENNOSIDES 8.6 MG TABLET PO SCH (21:25)
[2022-07-30] MEDS: TEMAZEPAM 7.5 MG CAPSULE PO PRN (21:25)
[2022-07-30] MEDS: ATORVASTATIN 10 MG TABLET PO SCH (21:25)
--- NOTE | 2022-07-30 21:25 | NUR ---
RN NOTE PT REQUESTED SLEEPING PILL. ADMINISTERED RESTORIL 7.5 MG FOR INSOMNIA ORDERED. MADE COMFORTABLE IN BED. ALL NEEDS MET AT THIS TIME.
[2022-07-31 08:00] VITALS: BP 137/85
[2022-07-31] MEDS: ENSURE ENLIVE 237 ML LIQUID (VANILLA) PO SCH ×2 (08:48→17:30)
[2022-07-31] MEDS: PANTOPRAZOLE 40 MG/PACK PACK PO SCH (08:50)
[2022-07-31] MEDS: DOCUSATE SODIUM 100 MG CAPSULE PO SCH (09:17)
[2022-07-31] MEDS: CALCIUM CARB 600MG /VIT D 1 EACH TABLET PO SCH (09:18)
[2022-07-31] MEDS: ASCORBIC ACID 500 MG TABLET PO SCH (09:18)
[2022-07-31] MEDS: MULTIVIT W/MINERALS 1 TAB TABLET PO SCH (09:18)
[2022-07-31] MEDS: DIGOXIN 0.125 MG TABLET PO SCH (09:19)
[2022-07-31] MEDS: APIXABAN 5 MG TABLET PO SCH ×2 (09:20→17:31)
[2022-07-31] MEDS: METOPROLOL TARTRATE 25 MG TABLET PO SCH ×2 (09:21→21:31)
[2022-07-31] MEDS: BENAZEPRIL HCL 10 MG TABLET PO SCH (09:21)
[2022-07-31] MEDS: ESTROGENS,CONJUGATED (0.3 mg) 0.3 MG TABLET PO SCH (09:24)
[2022-07-31] MEDS: FLUTICASONE PROPIONATE 16 GM BOTTLE NS SCH (09:24)
[2022-07-31] MEDS: DULOXETINE HCL 30 MG CAPSULE.DR PO SCH ×2 (12:43→17:30)
[2022-07-31 16:00] VITALS: BP 122/59
--- NOTE | 2022-07-31 19:50 | NUR ---
GPS RN OPENING NOTES RECEIVED PATIENT IN BED, AWAKE AND CONFUSED. NO S/S PAIN OR ANY DISCOMFORTS AT THIS TIME. PATIENT IS BREATHING EVENLY AND UNLABORED WITH EQUAL RISE AND FALL OF THE CHEST. PATIENT IS A/O X 3 ON ROOM AIR SATURATING WELL.ABLE TO MADE NEEDS KNOW COOPERATIVE WITH THE STAFF.PATIENT IS COMPLIANT WITH THE MEDICATIONS, DISORGANIZED, RESPONDING TO INTERNAL STIMULI, ANXIOUS AND GUARDED KEPT BED ON LOWER LOCKED POSITION, KEPT SIDE RAILS UP X 3 ALL THE TIME. KEPT CALL LIGHT WITHIN AT REACH. WILL CONTINUE TO MONITOR Q15 MIN WITH THE HELP OF THE STAFF TO MAINTAIN SAFETY.
[2022-07-31 20:00] VITALS: BP 123/67
[2022-07-31] MEDS: SENNOSIDES 8.6 MG TABLET PO SCH (21:30)
[2022-07-31] MEDS: ATORVASTATIN 10 MG TABLET PO SCH (21:30)
[2022-07-31] MEDS: TEMAZEPAM 7.5 MG CAPSULE PO PRN (21:31)
[2022-08-01] MEDS: ACETAMINOPHEN ES 500 MG TABLET PO PRN (01:57)
--- NOTE | 2022-08-01 02:00 | NUR ---
RN NOTES PATIENT COMPLAIN OF PAIN IN THE BACK. TYLENOL 1000MG GIVEN AND WELL TOLERATED BY THE PATIENT.
[2022-08-01 08:00] VITALS: BP 128/68
[2022-08-01] MEDS: ENSURE ENLIVE 237 ML LIQUID (VANILLA) PO SCH ×2 (08:38→16:58)
[2022-08-01] MEDS: FLUTICASONE PROPIONATE 16 GM BOTTLE NS SCH (08:39)
[2022-08-01] MEDS: ALENDRONATE 70 MG TABLET PO SCH (08:39)
[2022-08-01] MEDS: PANTOPRAZOLE 40 MG/PACK PACK PO SCH (08:42)
[2022-08-01] MEDS: MULTIVIT W/MINERALS 1 TAB TABLET PO SCH (08:43)
[2022-08-01] MEDS: ASCORBIC ACID 500 MG TABLET PO SCH (08:43)
[2022-08-01] MEDS: DIGOXIN 0.125 MG TABLET PO SCH (08:43)
[2022-08-01] MEDS: CALCIUM CARB 600MG /VIT D 1 EACH TABLET PO SCH (08:43)
[2022-08-01] MEDS: DOCUSATE SODIUM 100 MG CAPSULE PO SCH (08:43)
[2022-08-01] MEDS: APIXABAN 5 MG TABLET PO SCH ×2 (08:44→16:59)
[2022-08-01] MEDS: BENAZEPRIL HCL 10 MG TABLET PO SCH (08:44)
[2022-08-01] MEDS: METOPROLOL TARTRATE 25 MG TABLET PO SCH ×2 (08:44→21:47)
[2022-08-01] MEDS: ESTROGENS,CONJUGATED (0.3 mg) 0.3 MG TABLET PO SCH (10:31)
[2022-08-01] MEDS: DULOXETINE HCL 30 MG CAPSULE.DR PO SCH ×2 (11:56→16:58)
[2022-08-01 16:00] VITALS: BP 116/66
--- NOTE | 2022-08-01 19:00 | NUR ---
GPS RN OPENING NOTE RECEIVED PT AWAKE AND IN BED. PT IS A/OX3, ABLE TO MAKE NEEDS KNOWN. NO S/S OR COMPLAINTS OF PAIN @ THIS TIME. PATIENT IS SHOWING NO S/S OF DISTRESS AT THIS TIME. PATIENT IS IN RA TOLERATING WELL, BREATHING EVEN AND UNLABORED AT THIS TIME WITH SPO2 OF 96%. PT IS COMPLIANT W/ MEDICATION, COOPERATIVE W/ STAFF, ISOLATIVE AND GUARDED. PATIENT HAS NO NEED @ THIS TIME. PATIENT IS EDUCATED ON THE USE OF CALL WEAVER. PATIENT BED SIDE RAILS UP X 2 FOR SAFETY. BED LOCKED AND LOW. WILL CONTINUE TO MONITOR Q15 WITH THE HELP OF STAFF TO MAINTAIN SAFETY.
[2022-08-01 21:23] VITALS: BP 131/67
[2022-08-01] MEDS: ATORVASTATIN 10 MG TABLET PO SCH (21:45)
[2022-08-01] MEDS: SENNOSIDES 8.6 MG TABLET PO SCH (21:52)
[2022-08-02 08:00] VITALS: BP 123/79
[2022-08-02] MEDS: ENSURE ENLIVE 237 ML LIQUID (VANILLA) PO SCH ×2 (08:37→16:13)
[2022-08-02] MEDS: FLUTICASONE PROPIONATE 16 GM BOTTLE NS SCH (08:37)
[2022-08-02] MEDS: MULTIVIT W/MINERALS 1 TAB TABLET PO SCH (08:40)
[2022-08-02] MEDS: ASCORBIC ACID 500 MG TABLET PO SCH (08:40)
[2022-08-02] MEDS: DOCUSATE SODIUM 100 MG CAPSULE PO SCH (08:40)
[2022-08-02] MEDS: PANTOPRAZOLE 40 MG/PACK PACK PO SCH (08:40)
[2022-08-02] MEDS: CALCIUM CARB 600MG /VIT D 1 EACH TABLET PO SCH (08:40)
[2022-08-02] MEDS: DIGOXIN 0.125 MG TABLET PO SCH (08:41)
[2022-08-02] MEDS: APIXABAN 5 MG TABLET PO SCH ×2 (08:41→16:15)
[2022-08-02] MEDS: BENAZEPRIL HCL 10 MG TABLET PO SCH (08:41)
[2022-08-02] MEDS: METOPROLOL TARTRATE 25 MG TABLET PO SCH ×2 (08:42→21:03)
[2022-08-02] MEDS: ESTROGENS,CONJUGATED (0.3 mg) 0.3 MG TABLET PO SCH (08:43)
[2022-08-02] MEDS: DULOXETINE HCL 30 MG CAPSULE.DR PO SCH ×2 (12:33→16:14)
[2022-08-02 16:00] VITALS: BP 105/65
[2022-08-02 20:17] VITALS: BP 123/64
[2022-08-02] MEDS: ATORVASTATIN 10 MG TABLET PO SCH (21:02)
[2022-08-02] MEDS: SENNOSIDES 8.6 MG TABLET PO SCH (21:02)
[2022-08-03] MEDS: PANTOPRAZOLE 40 MG/PACK PACK PO SCH (08:05)
[2022-08-03] MEDS: MULTIVIT W/MINERALS 1 TAB TABLET PO SCH (08:05)
[2022-08-03] MEDS: ENSURE ENLIVE 237 ML LIQUID (VANILLA) PO SCH ×2 (08:05→17:02)
[2022-08-03] MEDS: CALCIUM CARB 600MG /VIT D 1 EACH TABLET PO SCH (08:06)
[2022-08-03] MEDS: METOPROLOL TARTRATE 25 MG TABLET PO SCH ×2 (08:06→21:00)
[2022-08-03] MEDS: DIGOXIN 0.125 MG TABLET PO SCH (08:06)
[2022-08-03] MEDS: DOCUSATE SODIUM 100 MG CAPSULE PO SCH (08:06)
[2022-08-03] MEDS: ASCORBIC ACID 500 MG TABLET PO SCH (08:06)
[2022-08-03] MEDS: BENAZEPRIL HCL 10 MG TABLET PO SCH (08:07)
[2022-08-03] MEDS: ESTROGENS,CONJUGATED (0.3 mg) 0.3 MG TABLET PO SCH (08:07)
[2022-08-03] MEDS: APIXABAN 5 MG TABLET PO SCH ×2 (08:08→17:01)
[2022-08-03 08:29] VITALS: BP 139/62
[2022-08-03] MEDS: FLUTICASONE PROPIONATE 16 GM BOTTLE NS SCH ×2 (09:00→09:33)
--- NOTE | 2022-08-03 12:02 | NUR ---
Court Notification: SW attempted to contact pt's sister Anila ([phone]) to notify of 5250 hearing and left a voicemail.
--- NOTE | 2022-08-03 12:02 | NUR ---
Court Hearing: Patient's court hearing for 6590 was today and it was upheld for GD.
[2022-08-03] MEDS: DULOXETINE HCL 30 MG CAPSULE.DR PO SCH ×2 (12:43→17:02)
[2022-08-03 16:00] VITALS: BP 124/64
[2022-08-03 19:49] VITALS: BP 105/51
[2022-08-03] MEDS: SENNOSIDES 8.6 MG TABLET PO SCH (21:08)
[2022-08-03] MEDS: ATORVASTATIN 10 MG TABLET PO SCH (21:08)
[2022-08-04 08:00] VITALS: BP 129/75
[2022-08-04] MEDS: PANTOPRAZOLE 40 MG/PACK PACK PO SCH (08:18)
[2022-08-04] MEDS: ENSURE ENLIVE 237 ML LIQUID (VANILLA) PO SCH ×2 (08:18→16:41)
[2022-08-04] MEDS: FLUTICASONE PROPIONATE 16 GM BOTTLE NS SCH (09:00)
[2022-08-04] MEDS: ASCORBIC ACID 500 MG TABLET PO SCH (09:05)
[2022-08-04] MEDS: ESTROGENS,CONJUGATED (0.3 mg) 0.3 MG TABLET PO SCH (09:05)
[2022-08-04] MEDS: DOCUSATE SODIUM 100 MG CAPSULE PO SCH (09:05)
[2022-08-04] MEDS: METOPROLOL TARTRATE 25 MG TABLET PO SCH ×2 (09:06→20:24)
[2022-08-04] MEDS: DIGOXIN 0.125 MG TABLET PO SCH (09:06)
[2022-08-04] MEDS: BENAZEPRIL HCL 10 MG TABLET PO SCH (09:06)
[2022-08-04] MEDS: MULTIVIT W/MINERALS 1 TAB TABLET PO SCH (09:06)
[2022-08-04] MEDS: APIXABAN 5 MG TABLET PO SCH ×2 (09:07→16:36)
[2022-08-04] MEDS: CALCIUM CARB 600MG /VIT D 1 EACH TABLET PO SCH (09:07)
[2022-08-04] MEDS: DULOXETINE HCL 30 MG CAPSULE.DR PO SCH ×2 (12:53→16:35)
[2022-08-04 16:00] VITALS: BP 104/60
[2022-08-04 20:09] VITALS: BP 100/51
[2022-08-04] MEDS: TEMAZEPAM 7.5 MG CAPSULE PO PRN (20:30)
[2022-08-04] MEDS: SENNOSIDES 8.6 MG TABLET PO SCH (21:07)
[2022-08-04] MEDS: ATORVASTATIN 10 MG TABLET PO SCH (21:07)
[2022-08-05 08:00] VITALS: BP 124/68
[2022-08-05] MEDS: PANTOPRAZOLE 40 MG/PACK PACK PO SCH (08:25)
[2022-08-05] MEDS: ASCORBIC ACID 500 MG TABLET PO SCH (08:26)
[2022-08-05] MEDS: CALCIUM CARB 600MG /VIT D 1 EACH TABLET PO SCH (08:26)
[2022-08-05] MEDS: ENSURE ENLIVE 237 ML LIQUID (VANILLA) PO SCH ×2 (08:26→16:17)
[2022-08-05] MEDS: ESTROGENS,CONJUGATED (0.3 mg) 0.3 MG TABLET PO SCH (08:26)
[2022-08-05] MEDS: MULTIVIT W/MINERALS 1 TAB TABLET PO SCH (08:26)
[2022-08-05] MEDS: DOCUSATE SODIUM 100 MG CAPSULE PO SCH (08:26)
[2022-08-05] MEDS: METOPROLOL TARTRATE 25 MG TABLET PO SCH ×2 (08:27→21:16)
[2022-08-05] MEDS: BENAZEPRIL HCL 10 MG TABLET PO SCH (08:27)
[2022-08-05] MEDS: DIGOXIN 0.125 MG TABLET PO SCH (08:27)
[2022-08-05] MEDS: APIXABAN 5 MG TABLET PO SCH ×2 (08:34→16:19)
[2022-08-05] MEDS: FLUTICASONE PROPIONATE 16 GM BOTTLE NS SCH (09:37)
[2022-08-05] MEDS: DULOXETINE HCL 30 MG CAPSULE.DR PO SCH ×2 (13:13→16:17)
[2022-08-05 16:00] VITALS: BP 113/60
[2022-08-05 20:09] VITALS: BP 102/60
[2022-08-05] MEDS: ATORVASTATIN 10 MG TABLET PO SCH (21:17)
[2022-08-05] MEDS: SENNOSIDES 8.6 MG TABLET PO SCH (21:17)
[2022-08-05] MEDS: TEMAZEPAM 7.5 MG CAPSULE PO PRN (21:21)
[2022-08-06 08:00] VITALS: BP 110/74
[2022-08-06] MEDS: PANTOPRAZOLE 40 MG/PACK PACK PO SCH (08:48)
[2022-08-06] MEDS: ENSURE ENLIVE 237 ML LIQUID (VANILLA) PO SCH ×2 (08:48→17:16)
[2022-08-06] MEDS: APIXABAN 5 MG TABLET PO SCH ×2 (09:07→17:16)
[2022-08-06] MEDS: CALCIUM CARB 600MG /VIT D 1 EACH TABLET PO SCH (09:07)
[2022-08-06] MEDS: MULTIVIT W/MINERALS 1 TAB TABLET PO SCH (09:07)
[2022-08-06] MEDS: DOCUSATE SODIUM 100 MG CAPSULE PO SCH (09:07)
[2022-08-06] MEDS: ASCORBIC ACID 500 MG TABLET PO SCH (09:07)
[2022-08-06] MEDS: ESTROGENS,CONJUGATED (0.3 mg) 0.3 MG TABLET PO SCH (09:07)
[2022-08-06] MEDS: DIGOXIN 0.125 MG TABLET PO SCH (09:08)
[2022-08-06] MEDS: BENAZEPRIL HCL 10 MG TABLET PO SCH (09:10)
[2022-08-06] MEDS: METOPROLOL TARTRATE 25 MG TABLET PO SCH ×2 (09:10→21:52)
[2022-08-06] MEDS: FLUTICASONE PROPIONATE 16 GM BOTTLE NS SCH (09:33)
[2022-08-06] MEDS: DULOXETINE HCL 30 MG CAPSULE.DR PO SCH ×2 (12:34→17:15)
[2022-08-06 16:00] VITALS: BP 122/75
--- NOTE | 2022-08-06 19:02 | NUR ---
RN-NOTES PATIENT LYING IN BED AWAKE,A/OX2 CALM,NO ACUTE DISTRESS NOTED.COMPLIANT WITH MEDICATION. GOOD JOANNE CARE RENDERED. ENCOURAGED AND ASSISTED IN REPOSITIONING Q2HR.PATIENT IS COOPERATIVE WITH STAFF AND CARE. NEEDS MODERATE ASSIST WITH ADL'S. ALL NEEDS ATTENDED AND ANTICIPATED. WILL CONT. MONITORING FOR SAFETY AND BEHAVIOR.WILL ENDORSE TO INCOMING NURSE FOR THE CONTINUITY OF CARE.
--- NOTE | 2022-08-06 19:55 | NUR ---
RN NOTES:RECEIVED PATIENT IN BED RESTING COMFORTABLY. A/OX2. NO S/SX OF ACUTE DISTRESS NOTED. PATIENT IS GUARDED,DEPRESSED CALM, QUIET AND COOPERATIVE UPON APPROACH. ENCOURAGED TO VERBALIZED ANY FEELING OR CONCERN ,SAFETY PRECAUTIONS MAINTAINED. WILL CONTINUE TO MONITOR Q15MIN ROUNDS FOR SAFETY.
[2022-08-06 20:19] VITALS: BP 109/62
--- NOTE | 2022-08-06 21:03 | NUR ---
RN NOTES: ANXIETY PT. C/O FEELING ANXIOUS , PRN ATIVAN 0.5 MG PO GIVEN PER PT. REQUEST, WILL CONTINUE TO MONITOR.
[2022-08-06] MEDS: ATORVASTATIN 10 MG TABLET PO SCH (21:52)
[2022-08-06] MEDS: SENNOSIDES 8.6 MG TABLET PO SCH (21:52)
[2022-08-07 08:00] VITALS: BP 119/69
[2022-08-07] MEDS: PANTOPRAZOLE 40 MG/PACK PACK PO SCH (08:29)
[2022-08-07] MEDS: ENSURE ENLIVE 237 ML LIQUID (VANILLA) PO SCH ×2 (08:29→16:09)
--- NOTE | 2022-08-07 09:04 | NUR ---
WOUND CARE CONSULT: PT PRESENTS WITH RT LOWER LEG WOUND AND RT GREAT TOE ABRASION. PT STATES THAT SHE SCRATCHES HER SKIN AT TIMES. DR AREVALO CALLED FOR SURGICAL CONSULT. RECOMMENDATIONS MADE FOR SKIN PROTECTION AND WOUND CARE. PT IS INCONTINENT. IN AGREEMENT WITH PLAN OF CARE.
[2022-08-07] MEDS: DOCUSATE SODIUM 100 MG CAPSULE PO SCH (09:17)
[2022-08-07] MEDS: ESTROGENS,CONJUGATED (0.3 mg) 0.3 MG TABLET PO SCH (09:17)
[2022-08-07] MEDS: BENAZEPRIL HCL 10 MG TABLET PO SCH (09:18)
[2022-08-07] MEDS: DIGOXIN 0.125 MG TABLET PO SCH (09:18)
[2022-08-07] MEDS: CALCIUM CARB 600MG /VIT D 1 EACH TABLET PO SCH (09:18)
[2022-08-07] MEDS: MULTIVIT W/MINERALS 1 TAB TABLET PO SCH (09:18)
[2022-08-07] MEDS: ASCORBIC ACID 500 MG TABLET PO SCH (09:18)
[2022-08-07] MEDS: APIXABAN 5 MG TABLET PO SCH ×2 (09:19→16:29)
[2022-08-07] MEDS: METOPROLOL TARTRATE 25 MG TABLET PO SCH ×2 (09:19→21:38)
[2022-08-07] MEDS: Z GUARD REMEDY 4 OZ OINT TP PRN (09:26)
[2022-08-07] MEDS: FLUTICASONE PROPIONATE 16 GM BOTTLE NS SCH (09:26)
[2022-08-07] MEDS: NEOMY SULF/BACITRAC ZN/POLY 15 GM TUBE TP SCH (11:52)
[2022-08-07] MEDS: DULOXETINE HCL 30 MG CAPSULE.DR PO SCH ×2 (12:06→16:09)
[2022-08-07 16:00] VITALS: BP 108/69
--- NOTE | 2022-08-07 17:22 | NUR ---
RN-NOTES PATIENT LYING IN BED AWAKE,A/OX2 CALM,NO ACUTE DISTRESS NOTED.COMPLIANT WITH MEDICATION. GOOD JOANNE CARE RENDERED. ENCOURAGED AND ASSISTED IN REPOSITIONING Q2HR.PATIENT IS COOPERATIVE WITH STAFF AND CARE. PATIENT ATTENDED GROUPS FOR SHORT PERIOD OF TIME.NEEDS MODERATE ASSIST WITH ADL'S. ALL NEEDS ATTENDED AND ANTICIPATED. WILL CONT. MONITORING FOR SAFETY AND BEHAVIOR.WILL ENDORSE TO INCOMING NURSE FOR THE CONTINUITY OF CARE.
[2022-08-07 20:00] VITALS: BP 109/72
--- NOTE | 2022-08-07 20:41 | NUR ---
WIG COMBER NOTES:PATIENT LYING IN BED AWAKE,A/OX2 CALM,NO ACUTE DISTRESS NOTED.BREATHING EVEN AND NON-LABORED.COMPLIANT WITH MEDICATION. GOOD JOANNE CARE RENDERED. ENCOURAGED AND ASSISTED IN REPOSITIONING Q2HR FOR COMFORT AND CIRCULATION.PATIENT IS COOPERATIVE WITH STAFF AND CARE. NEEDS MODERATE ASSIST WITH ADL'S. ALL NEEDS ATTENDED AND ANTICIPATED. WILL CONT. MONITORING FOR SAFETY AND BEHAVIOR.
[2022-08-07] MEDS: SENNOSIDES 8.6 MG TABLET PO SCH (21:29)
--- NOTE | 2022-08-07 21:32 | NUR ---
PATIENT REFUSED SENNA DUE TO 4 BM
[2022-08-07] MEDS: ATORVASTATIN 10 MG TABLET PO SCH (21:37)
--- NOTE | 2022-08-07 22:27 | NUR ---
PATIENT C/O PAIN FROM PAIN SCALE 3/10 ADMINISTERED PRN 650 MG
[2022-08-08 08:00] VITALS: BP 105/57
[2022-08-08] MEDS: ALENDRONATE 70 MG TABLET PO SCH (08:36)
[2022-08-08] MEDS: ENSURE ENLIVE 237 ML LIQUID (VANILLA) PO SCH ×2 (08:36→17:26)
[2022-08-08] MEDS: FLUTICASONE PROPIONATE 16 GM BOTTLE NS SCH (08:36)
[2022-08-08] MEDS: METOPROLOL TARTRATE 25 MG TABLET PO SCH ×2 (08:37→21:15)
[2022-08-08] MEDS: BENAZEPRIL HCL 10 MG TABLET PO SCH (08:38)
[2022-08-08] MEDS: NEOMY SULF/BACITRAC ZN/POLY 15 GM TUBE TP SCH (08:38)
[2022-08-08] MEDS: ESTROGENS,CONJUGATED (0.3 mg) 0.3 MG TABLET PO SCH (08:38)
[2022-08-08] MEDS: MULTIVIT W/MINERALS 1 TAB TABLET PO SCH (08:42)
[2022-08-08] MEDS: PANTOPRAZOLE 40 MG/PACK PACK PO SCH (08:42)
[2022-08-08] MEDS: CALCIUM CARB 600MG /VIT D 1 EACH TABLET PO SCH (08:42)
[2022-08-08] MEDS: DIGOXIN 0.125 MG TABLET PO SCH (08:43)
[2022-08-08] MEDS: DOCUSATE SODIUM 100 MG CAPSULE PO SCH (08:43)
[2022-08-08] MEDS: ASCORBIC ACID 500 MG TABLET PO SCH (08:43)
[2022-08-08] MEDS: APIXABAN 5 MG TABLET PO SCH ×2 (08:45→17:28)
[2022-08-08] MEDS: DULOXETINE HCL 30 MG CAPSULE.DR PO SCH ×2 (12:23→17:27)
[2022-08-08 16:08] VITALS: BP 119/68
--- NOTE | 2022-08-08 19:58 | NUR ---
SULFURIC ACID PLANT SUPERVISOR NOTES: RECEIVED PATIENT LYING IN BED AWAKE,A/OX2 CALM,NO APPARENT DISTRESS .BREATHING EVEN AND NON-LABORED.NO S/S OF PAIN AT THIS TIME.COMPLIANT WITH MEDICATION. GOOD JOANNE CARE RENDERED. ENCOURAGED AND ASSISTED IN REPOSITIONING Q2HR FOR COMFORT AND CIRCULATION.PATIENT IS COOPERATIVE WITH STAFF AND CARE. NEEDS MODERATE ASSIST WITH ADL'S. ALL NEEDS ATTENDED AND ANTICIPATED. WILL CONT. MONITORING FOR SAFETY AND BEHAVIOR.
[2022-08-08 20:52] VITALS: BP 119/71
[2022-08-08] MEDS: ATORVASTATIN 10 MG TABLET PO SCH (21:15)
[2022-08-08] MEDS: SENNOSIDES 8.6 MG TABLET PO SCH (21:16)
[2022-08-09 08:00] VITALS: BP 117/60
[2022-08-09] MEDS: ENSURE ENLIVE 237 ML LIQUID (VANILLA) PO SCH ×2 (08:04→16:10)
[2022-08-09] MEDS: CALCIUM CARB 600MG /VIT D 1 EACH TABLET PO SCH (10:22)
[2022-08-09] MEDS: MULTIVIT W/MINERALS 1 TAB TABLET PO SCH (10:22)
[2022-08-09] MEDS: DOCUSATE SODIUM 100 MG CAPSULE PO SCH (10:22)
[2022-08-09] MEDS: ASCORBIC ACID 500 MG TABLET PO SCH (10:23)
[2022-08-09] MEDS: PANTOPRAZOLE 40 MG/PACK PACK PO SCH (10:26)
[2022-08-09] MEDS: APIXABAN 5 MG TABLET PO SCH ×2 (10:26→16:10)
[2022-08-09] MEDS: BENAZEPRIL HCL 10 MG TABLET PO SCH (10:28)
[2022-08-09] MEDS: DIGOXIN 0.125 MG TABLET PO SCH (10:29)
[2022-08-09] MEDS: METOPROLOL TARTRATE 25 MG TABLET PO SCH ×2 (10:42→21:00)
[2022-08-09] MEDS: ESTROGENS,CONJUGATED (0.3 mg) 0.3 MG TABLET PO SCH (10:45)
[2022-08-09] MEDS: Z GUARD REMEDY 4 OZ OINT TP PRN (10:47)
[2022-08-09] MEDS: FLUTICASONE PROPIONATE 16 GM BOTTLE NS SCH (11:16)
[2022-08-09] MEDS: NEOMY SULF/BACITRAC ZN/POLY 15 GM TUBE TP SCH (11:20)
[2022-08-09] MEDS: DULOXETINE HCL 30 MG CAPSULE.DR PO SCH ×2 (12:16→16:09)
[2022-08-09 16:00] VITALS: BP 126/68
[2022-08-09 20:25] VITALS: BP 109/60
[2022-08-09] MEDS: SENNOSIDES 8.6 MG TABLET PO SCH (21:18)
[2022-08-09] MEDS: ATORVASTATIN 10 MG TABLET PO SCH (21:18)
--- NOTE | 2022-08-09 21:20 | NUR ---
RN NOTE HELD SCHEDULED LOPRESSOR AT 2100 DUE TO DECREASED BP.
[2022-08-10 08:00] VITALS: BP 133/72
[2022-08-10] MEDS: ESTROGENS,CONJUGATED (0.3 mg) 0.3 MG TABLET PO SCH (08:12)
[2022-08-10] MEDS: PANTOPRAZOLE 40 MG/PACK PACK PO SCH (08:12)
[2022-08-10] MEDS: ASCORBIC ACID 500 MG TABLET PO SCH (08:12)
[2022-08-10] MEDS: APIXABAN 5 MG TABLET PO SCH ×2 (08:15→17:08)
[2022-08-10] MEDS: METOPROLOL TARTRATE 25 MG TABLET PO SCH ×2 (08:16→21:19)
[2022-08-10] MEDS: MULTIVIT W/MINERALS 1 TAB TABLET PO SCH (08:16)
[2022-08-10] MEDS: DIGOXIN 0.125 MG TABLET PO SCH (08:16)
[2022-08-10] MEDS: BENAZEPRIL HCL 10 MG TABLET PO SCH (08:17)
[2022-08-10] MEDS: CALCIUM CARB 600MG /VIT D 1 EACH TABLET PO SCH (08:17)
[2022-08-10] MEDS: DOCUSATE SODIUM 100 MG CAPSULE PO SCH (08:17)
[2022-08-10] MEDS: ENSURE ENLIVE 237 ML LIQUID (VANILLA) PO SCH ×2 (08:18→17:08)
[2022-08-10] MEDS: FLUTICASONE PROPIONATE 16 GM BOTTLE NS SCH (09:37)
[2022-08-10] MEDS: NEOMY SULF/BACITRAC ZN/POLY 15 GM TUBE TP SCH (09:42)
[2022-08-10] MEDS: DULOXETINE HCL 30 MG CAPSULE.DR PO SCH ×2 (12:09→17:08)
[2022-08-10 16:00] VITALS: BP 113/64
[2022-08-10 20:30] VITALS: BP 120/58
[2022-08-10] MEDS: SENNOSIDES 8.6 MG TABLET PO SCH (21:19)
[2022-08-10] MEDS: TEMAZEPAM 7.5 MG CAPSULE PO PRN (21:19)
[2022-08-10] MEDS: ATORVASTATIN 10 MG TABLET PO SCH (21:19)
[2022-08-11] MEDS: PANTOPRAZOLE 40 MG/PACK PACK PO SCH (07:54)
[2022-08-11] MEDS: ENSURE ENLIVE 237 ML LIQUID (VANILLA) PO SCH ×2 (07:58→17:07)
[2022-08-11 08:00] VITALS: BP 124/73
[2022-08-11] MEDS: NEOMY SULF/BACITRAC ZN/POLY 15 GM TUBE TP SCH (09:00)
[2022-08-11] MEDS: FLUTICASONE PROPIONATE 16 GM BOTTLE NS SCH (09:00)
[2022-08-11] MEDS: DIGOXIN 0.125 MG TABLET PO SCH (09:49)
[2022-08-11] MEDS: METOPROLOL TARTRATE 25 MG TABLET PO SCH ×2 (09:49→20:38)
[2022-08-11] MEDS: BENAZEPRIL HCL 10 MG TABLET PO SCH (09:50)
[2022-08-11] MEDS: CALCIUM CARB 600MG /VIT D 1 EACH TABLET PO SCH (09:50)
[2022-08-11] MEDS: ESTROGENS,CONJUGATED (0.3 mg) 0.3 MG TABLET PO SCH (09:50)
[2022-08-11] MEDS: DOCUSATE SODIUM 100 MG CAPSULE PO SCH (09:50)
[2022-08-11] MEDS: APIXABAN 5 MG TABLET PO SCH ×2 (09:52→17:09)
[2022-08-11] MEDS: ASCORBIC ACID 500 MG TABLET PO SCH (09:53)
[2022-08-11] MEDS: MULTIVIT W/MINERALS 1 TAB TABLET PO SCH (09:54)
[2022-08-11] MEDS: DULOXETINE HCL 30 MG CAPSULE.DR PO SCH ×2 (13:40→17:08)
[2022-08-11 16:00] VITALS: BP 113/59
[2022-08-11 19:27] VITALS: BP 105/57
[2022-08-11] MEDS: TEMAZEPAM 7.5 MG CAPSULE PO PRN (20:40)
[2022-08-11] MEDS: SENNOSIDES 8.6 MG TABLET PO SCH (21:00)
[2022-08-11] MEDS: ATORVASTATIN 10 MG TABLET PO SCH (21:00)
[2022-08-12 08:00] VITALS: BP 121/78
--- NOTE | 2022-08-12 08:08 | NUR ---
RYAN Discharge Note: Patient will discharge to [facility]- located at [address] [facility], [place] [address]; ([phone]). Please arrange ambulance at 1PM. Alva arellano from the facility ([phone]) is aware of discharge. RYAN contacted pts sister Anila ([phone]) and left a voicemail. Pt is alert and oriented x2. Pt denies suicidal or homicidal ideation. Pt denies visual/auditory hallucinations. Patient will continue to follow-up with (psychiatrist) Dr. Condon [address] [facility] [address], [place] [address]; ([phone]) and (heart doctor) Dr. Villagomez [address] [facility] [facility] [address], [place] [address]; ([phone]). Patient presents with euthymic mood and congruent affect.
[2022-08-12] MEDS: ASCORBIC ACID 500 MG TABLET PO SCH (08:49)
[2022-08-12] MEDS: DOCUSATE SODIUM 100 MG CAPSULE PO SCH (08:49)
[2022-08-12] MEDS: ESTROGENS,CONJUGATED (0.3 mg) 0.3 MG TABLET PO SCH (08:49)
[2022-08-12] MEDS: CALCIUM CARB 600MG /VIT D 1 EACH TABLET PO SCH (08:49)
[2022-08-12] MEDS: PANTOPRAZOLE 40 MG/PACK PACK PO SCH (08:49)
[2022-08-12] MEDS: MULTIVIT W/MINERALS 1 TAB TABLET PO SCH (08:49)
[2022-08-12 08:50] VITALS: BP 121/78
[2022-08-12] MEDS: METOPROLOL TARTRATE 25 MG TABLET PO SCH (08:50)
[2022-08-12] MEDS: BENAZEPRIL HCL 10 MG TABLET PO SCH (08:50)
[2022-08-12] MEDS: DIGOXIN 0.125 MG TABLET PO SCH (08:50)
[2022-08-12] MEDS: ENSURE ENLIVE 237 ML LIQUID (VANILLA) PO SCH (08:53)
[2022-08-12] MEDS: APIXABAN 5 MG TABLET PO SCH (08:56)
[2022-08-12] MEDS: NEOMY SULF/BACITRAC ZN/POLY 15 GM TUBE TP SCH (09:22)
[2022-08-12] MEDS: Z GUARD REMEDY 4 OZ OINT TP PRN (09:24)
[2022-08-12] MEDS: FLUTICASONE PROPIONATE 16 GM BOTTLE NS SCH (10:33)
[2022-08-12] MEDS: ACETAMINOPHEN ES 500 MG TABLET PO PRN (11:54)
[2022-08-12] MEDS: DULOXETINE HCL 30 MG CAPSULE.DR PO SCH (12:23)
--- NOTE | 2022-08-12 14:30 | NUR ---
RN-NOTES PATIENT HAD A DISCHARGE ORDER FROM DR. GRECO ( PSYCHIATRIST) HOGSHEAD MAT INSPECTOR EDER DE MEDICALLY CLEARED PATIENT FOR DISCHARGE. REPORT WAS GIVEN TO DOMO ( FACILITY TANK CAR MECHANIC). PATIENT DID NOT VERBALIZE SI/HI,DENIES VISUAL/AUDITORY HALLUCINATION UPON DISCHARGE. PATIENT WAS REVENUE LIAISON BY AMBULANCE VIA GURNEY WITH TWO STAFF ASSIST. ALL BELONGINGS WAS GIVE BACK TO THE PATIENT.PATIENT LEFT THE UNIT IN STABLE CONDITION A/O X3,NON AMBULATORY NEEDS MODERATE ASSIST WITH ADL'S.
== END 2022-08-12 14:30 | DRG 885 ==
LOC: ER 20:58 → GPS 07-29 01:28
PROVIDERS: ADMIT Psychiatry & Neurology Psychosomatic Medicine; ATTEND Internal Medicine
DX: F32.2 Major depressive disorder, single episode, severe without psychotic features (principal); I11.0 Hypertensive heart disease with heart failure; E44.0 Moderate protein-calorie malnutrition; I50.9 Heart failure, unspecified; R41.9 Unspecified symptoms and signs involving cognitive functions and awareness; F41.9 Anxiety disorder, unspecified; D64.9 Anemia, unspecified; I48.91 Unspecified atrial fibrillation; R45.1 Restlessness and agitation; E88.09 Other disorders of plasma-protein metabolism, not elsewhere classified; M54.50 Low back pain, unspecified; Z20.822 Contact with and (suspected) exposure to COVID-19
CPT/HCPCS: 36415; 80048-TC; 80061-TC; 80076-TC; 81001; 82565-TC; 82962-TC; 85025-TC; 97112-TC; 97530-TC; C9803; G0480

== ENCOUNTER 2023-01-03 18:51 | Emergency (ER) | payer MEDICARE, OTHER ==
[~2023-01-03] VITALS: Ht 165.1 cm; Wt 56.7 kg
[~2023-01-03 18:51] MED LIST changes: +ACET-2605 PO; +ALEN70TA80 PO; +APIX5TAB PO; -BENA10TA74 PO; +CALC1TAB30 PO; +CARI350T PO; +CHOL4PAC9 PO; -CLON0.1T PO; +CRAN425C6 PO; +CYCL30DR EACHEYE; +DIGO125T PO; -DIPH-1062 PO; +ESTR0.623 PO; +FLUT16SP16; +HYDR-3642 PO; +HYDR-4303 PO; +LACT1CAP59 PO; -LORA1TAB PO; +METO25TA20 PO; +MULT-447 PO; -MULT1TAB64 PO; +ONDA4TAB11 PO; +PANT20TA2 PO; +SENN-18 PO
[2023-01-03 19:05] VITALS: TEMP 97.5
[2023-01-03 23:59] VITALS: BP 144/81; O2SAT 98
== END 2023-01-04 00:10 ==
LOC: ER 18:54
DX: S00.11XA Contusion of right eyelid and periocular area, initial encounter (principal); I11.0 Hypertensive heart disease with heart failure; I50.9 Heart failure, unspecified; I48.91 Unspecified atrial fibrillation; K21.9 Gastro-esophageal reflux disease without esophagitis; F20.9 Schizophrenia, unspecified; Z88.2 Allergy status to sulfonamides; Z79.899 Other long term (current) drug therapy; W18.30XA Fall on same level, unspecified, initial encounter; Y93.89 Activity, other specified; Y92.89 Other specified places as the place of occurrence of the external cause; Y99.8 Other external cause status
CPT/HCPCS: 70450-TC; 70486-TC